=== PATIENT | female | born 1960 | race Caucasian/White ===

== ENCOUNTER → 2017-07-19 | Outpatient (CLI) | payer OTHER ==
--- NOTE | 2017-07-19 14:49 | XR ---
EXAMINATION TYPE: XR chest 2V DATE OF EXAM: 07/19/2017 COMPARISON: NONE HISTORY: Shortness of breath TECHNIQUE: Frontal and lateral views of the chest are obtained. FINDINGS: Scattered senescent parenchymal changes noted. Hyperinflation compatible with COPD. No evidence for infiltrate. No evidence for atelectasis. Heart size is stable. Mediastinal structures are stable and grossly unremarkable. No evidence for hilar prominence. Degenerative changes dorsal spine. IMPRESSION: 1. No evidence for acute pulmonary disease.
--- NOTE | 2017-07-19 14:51 | XR ---
EXAMINATION TYPE: XR forearm RT DATE OF EXAM: 07/19/2017 CLINICAL HISTORY: pain TECHNIQUE: Frontal and lateral images of the right forearm are obtained. COMPARISON: None. FINDINGS: There is no acute fracture/dislocation evident. The joint spaces appear within normal limi ts. The overlying soft tissue appears unremarkable. IMPRESSION: There is no acute fracture or dislocation. ICD 10 NO FRACTURE, INITIAL EVALUATION
--- NOTE | 2017-07-19 14:52 | XR ---
EXAMINATION TYPE: XR ribs LT DATE OF EXAM: 07/19/2017 CLINICAL HISTORY: Pain, Fall Four views of the ribs fail demonstrate evidence for displaced rib fracture or secondary sign of rib fracture. Visualized lungs are clear. No evidence for pneumothorax. IMPRESSION: No displaced rib fractures seen. ICD 10 NO FRACTURE, INITIAL EVALUATION
== END | disposition home or self-care (01) ==
LOC: RADXRMAIN 12:56
PROVIDERS: ATTEND Emergency Medicine
DX: S20.302A Unspecified superficial injuries of left front wall of thorax, initial encounter (principal); S50.11XA Contusion of right forearm, initial encounter; R07.89 Other chest pain; V89.2XXA Person injured in unspecified motor-vehicle accident, traffic, initial encounter
CPT/HCPCS: 71046

== ENCOUNTER → 2019-07-13 | Outpatient (CLI) | payer OTHER ==
[2019-07-13 09:25] LABS: Appearance,Urine Clear (Clear); Bilirubin,Urine Negative (Negative); Blood,Urine Trace (Negative); Color,Urine Light Yellow; Glucose,Urine (UA) Negative (Negative); Ketones,Urine Negative (Negative); Leukocyte Esterase,Urine Negative (Negative); Nitrite,Urine Negative (Negative); Protein,Urine Negative (Negative); RBC,Urine <1 /hpf (0-5); Specific Gravity,Urine 1.007 (1.001-1.035); Urobilinogen,Urine <2.0 mg/dL (<2.0); WBC,Urine <1 /hpf (0-5)
--- NOTE | 2019-07-13 10:17 | BD ---
EXAMINATION TYPE: Axial Bone Density DATE OF EXAM: 07/13/2019 COMPARISON: NONE CLINICAL HISTORY: N 95.1 Height: 5 FT 5 IN Weight: 164 FRAX RISK QUESTIONS: Alcohol (3 or more units per day): NO Family History (Parent hip fracture): NO Glucocorticoids (More than 3mos): NO (Ex: prednisone, prednisolone, methylprednisolone, dexamethasone, and hydrocortisone). History of Fracture in Adulthood: NO Secondary Osteoporosis: 1. Type 1 Diabetes: NO 2. Hyperthyroidism: NO 3. Menopause before 45: NO 4. Malnutrition: NO 5. Chronic liver disease: NO Rheumatoid Arthritis: NO Current Tobacco Use: NO RISK FACTORS HISTORY OF: Surgery to Spine/Hip(right/left)/Wrist (right/left): RT WRIST X 2 When: AGE 7 Family History of Osteoporosis: YES Active: YES Postmenopausal woman: AGE 54-54 Lost more than 2 inches in height since high school: YES MEDICATIONS: Additional Medications: MELOXICAM, VIT D Additional History: EXAM MEASUREMENTS: Bone mineral densitometry was performed using the [employer] System. Bone mineral density as measured about the Lumbar spine is: ----- L1-L4(G/cm2): 1.181 T Score Values are as follows: ----- L2: -0.4 ----- L3: 0.1 ----- L4: 0.1 ----- L1-L4: 0.0 BASELINE Bone mineral density about the R hip (g/cm2): 0.928 Bone mineral density about the L hip (g/cm2): 0.952 T Score values are as follows: -----R Neck: -0.8 -----L Neck: -0.6 -----R Total: -0.5 -----L Total: -0.4 BASELINE IMPRESSION: Normal (Values between +1 and -1 indicate normal bone mass). Consider repeating this study in 5 year s or sooner if there is some new clinical indication. NOTE: T-SCORE=SD OF THE YOUNG ADULT MEAN.
--- NOTE | 2019-07-16 11:36 | MM ---
Reason for exam: screening (asymptomatic). Last mammogram was performed 3 years and 7 months ago. History: Patient is postmenopausal. Physical Findings: A clinical breast exam by your physician is recommended on an annual basis and results should be correlated with mammographic findings. MG Screening Mammo w CAD Bilateral CC and MLO view(s) were taken. Prior study comparison: December 26, 2015, bilateral MG screening mammo w CAD. December 23, 2014, left breast MG work up mamm w CAD LT. The breast tissue is heterogeneously dense. This may lower the sensitivity of mammography. No suspicious abnormality. No significant changes when compared with prior studies. ASSESSMENT: Negative, BI-RAD 1 RECOMMENDATION: Routine screening mammogram of both breasts in 1 year.
== END | disposition home or self-care (01) ==
LOC: RADMAMWWP 08:06
PROVIDERS: ATTEND Obstetrics & Gynecology
DX: Z12.31 Encounter for screening mammogram for malignant neoplasm of breast (principal); N95.1 Menopausal and female climacteric states; R31.9 Hematuria, unspecified
CPT/HCPCS: 77067; 77080; 81001; 87086

== ENCOUNTER → 2024-01-04 | Outpatient (CLI) | payer OTHER ==
--- NOTE | 2024-02-18 13:07 | MR ---
EXAMINATION TYPE: MR ankle RT wo con DATE OF EXAM: 01/04/2024 COMPARISON: NONE HISTORY: 63-year-old female Chronic right ankle pain. M19.079 PRIMARY OSTEOARTHRITIS, UNSPECIFIED AN KLE TECHNIQUE: Multiplanar, multisequence images of the right ankle were obtained without IV contrast. FINDINGS: Focal severe osteoarthritic change in the navicular medial cuneiform joint with cartilage loss and fo alexandre subchondral marrow edema and cystic change. Additional osteoarthritic change with degenerative spurring along the dorsal talonavicular joint. The subtalar joint appears aligned. There may be mild early degenerative change along the posterior m argin of the posterior subtalar joint. An os trigonum is noted. At least moderate degenerative change throughout the tibiotalar joint with moderate irregular cartila ge thinning throughout and marginal spurring. However, there is more severe cartilage loss along the mid medial talar dome for an area of 1.8 cm AP and 8 mm wide. Corresponding irregularity of the subch ondral bone plate and reactive marrow edema on both sides of the joint. Small posterior tibiotalar and subtalar joint effusions communicating with the flexor hallucis longus tendon sheath. Moderate tenosynovial fluid along the posterior tibial tendon and flexor digitorum longus tendon to t he level of the knot of Wade. Medial flexor tendons are otherwise intact. Inhomogeneous signal along the posterior deltoid ligament fibers suggesting old injury. Lateral peroneal tendons appear intact. Some increased signal along the visualized PTFL fibers suggesting chronic or low-grade sprain. ATFL appears within possibly reflecting old injury but is otherwise intact. CFL is intact. The syndesmosis and anterior extensor tendons appear intact. Trace fluid within the retrocalcaneal bursa. Smooth delineation to the Achilles tendon. There is a sm all plantar heel spur at the origin of the plantar fascia is intact. Preserved fatty signal within the sinus tarsi. Tarsal tunnel is clear. IMPRESSION: 1. Overall moderate osteoarthritic change within the tibiotalar joint though with more severe cartila ge loss and reactive marrow signal change at the mid medial talar dome for an area of 18 x 8 mm. 2. Focal severe osteoarthritic change at the navicular medial cuneiform joint. 3. Mild to moderate osteoarthritic change dorsal talonavicular joint. 4. PTFL with a chronic versus low-grade sprain. Suspect old sprains of both ATFL and deltoid ligament . 5. Moderate fluid along the tendon sheaths of the medial flexor tendons may be reactive or could repr esent a nonspecific tenosynovitis.
== END | disposition home or self-care (01) ==
LOC: RADMRIMAIN 09:30
PROVIDERS: ATTEND Podiatrist Foot & Ankle Surgery
DX: M19.071 Primary osteoarthritis, right ankle and foot (principal); M24.171 Other articular cartilage disorders, right ankle

== ENCOUNTER 2024-04-06 09:45 | Day surgery (SDC) | payer OTHER ==
[~2024-04-06 09:45] MED LIST: HYDROmorphone 0.5 MG/0.5 ML SYRINGE IVP PRN; LIDOCAINE 1% (10MG/ML) FOR IV START INTRADERMA PRN; MIDAZOLAM 2 MG/2 ML VIAL IV PRN; fentaNYL (PF) 50 MCG/ML 2 ML AMP IVP PRN
[2024-04-06] MEDS: IV FLUID CONTINUATION 1,000 ML IV ONE (09:58)
[2024-04-06] MEDS: DEXAMETHASONE SOD PHOSPHATE 4 MG/ML 1 ML VIAL IV ONE (10:17)
[2024-04-06] MEDS: ONDANSETRON 4 MG/2 ML VIAL IVP ONE (10:17)
[2024-04-06] MEDS: LACTATED RINGERS 1,000 ML IV SCH (10:17)
[2024-04-06] MEDS ORDERED: LIDOCAINE 1% INJ 10MG/ML (20 ML MDV) ONE (11:31)
[2024-04-06] MEDS ORDERED: MIDAZOLAM 2 MG/2 ML VIAL ONE (11:31)
[2024-04-06] MEDS ORDERED: fentaNYL (PF) 50 MCG/ML 2 ML AMP ONE (11:31)
[2024-04-06] MEDS ORDERED: PROPOFOL 10 MG/ML 20 ML VIAL IV ONE (11:31)
[2024-04-06] MEDS: LIDOCAINE 1% INJ 10MG/ML (20 ML MDV) SQ ONE ×2 (11:51→12:33)
[2024-04-06] MEDS: BUPIVACAINE (PF) 0.5% 30 ML VIAL SQ ONE (12:33)
[2024-04-06 12:47] VITALS: TEMP 97.6
--- NOTE | 2024-04-06 12:58 | P.OP ---
Date of Procedure: 04/06/24 Preoperative Diagnosis: Right ankle arthritis Tibial exostosis right ankle Postoperative Diagnosis: Right ankle arthritis Tibial exostosis right ankle Procedure(s) Performed: Extensive arthroscopic debridement right ankle Tibial exostectomy right ankle Talar exostectomy right ankle Implants: None Anesthesia: PRATIK DEAN Surgeon: Joi Coronado Estimated Blood Loss (ml): 3 Pathology: other (Soft tissue and bone sent to pathology) Condition: stable Disposition: PACU Indications for Procedure: This is a 63-year-old female presenting for surgical intervention of her right ankle. Patient has had chronic ankle arthritis for quite some time and has been treated conservatively she is officially failed all conservative treatment options. Patient has had injections as well as bracing. The patient has chosen surgical correction of the deformity. Preoperative H&P and lab studies were reviewed and no apparent contraindications to proposed surgery were noted. Informed consent was obtained x-rays and MRI confirmed the diagnosis. Patient's questions were answered to the level of their satisfaction no guarantees were given or implied Description of Procedure: Under mild sedation the patient was brought into the operating room and placed on the operating table in the supine position. Followed following general anesthesia the right leg was scrubbed prepped and draped in the usual aseptic manner. A timeout was performed and the leg was exsanguinated to allow for hemostasis. It was elevated to 60 degrees and the tourniquet was inflated to 300 mmHg. The leg was lowered to the table. At that time the bed was elevated and the feet were dropped in order to Distention of the ankle joint. A small percutaneous incision was made on the medial ankle joint after the joint was insufflated with 20 cc of lidocaine. This was then deepened with a hemostat with care to retract all vital neurovascular structures. Hemostat entered the joint smoothly and we noticed fluid that was appropriate location. Scope was placed in the ankle joint. Severe destructive changes appreciated to the ankle joint. There is very extensive synovitis. Photographs were taken. Next a an incision was made on the lateral aspect of the joint and the 4 oh shaver was placed into the joint. Once in the joint and some of the synovitis was cleaned up were able to better visualize the joint. Severe cartilage destruction is appreciated to the anterior distal tibia as well as dorsal talus. Photographs are taken of this due to the extensive destruction. Complete subchondral bone had been removed and it was down to what appears to be cancellous bone. Extensive debridement of the synovitis was appreciated. Large spur was noted and unable to be resected through the scope. At that time it was decided to convert this to an open p rocedure. The medial incision was then lengthened with a sterile 15 blade and deepened with a hemostat. Care was taken to avoid all neurovascular structures. Once down to the joint the distal tibial articulation with the talus was easily noted. A very large spur was appreciated. An osteotome was used to resect the spur off of the talus as well as the distal tibia. Once both spurs were resect ed a power rasp was used to smooth both sides. Good range of motion of the joint was appreciated with no grinding of the tibia within the talus. The site was flushed with copious amounts of saline. Next deep closure was performed with 3-0 Vicryl subcutaneous closure with 4-0 Vicryl and skin closure with 3-0 Prolene. A postoperative block consisting of 10 cc 1% lidocaine plain and 10 cc of half percent Marcaine plain were injected regionally around the ankle joint. The site was dressed with Betadine soaked Adaptic, 4 x 4, ABD, Dudley and an Garth bandage. Patient was paced in a surgical shoe. She is to remain nonweightbearing. Patient tolerated the procedure and anesthesia well without complications. Tourniquet was deflated and hyperemic response was noted to all digits. Patient will be discharged home per anesthesia. Patient struck to to ice and elevate the right foot while at rest. She is instructed to do knee flexion extension exercises. She is able to start her Eliquis tomorrow. Prescription for tramadol was sent to the pharmacy today. Joi Coronado D.P.M., AACFAS
--- NOTE | 2024-04-06 13:35 | XR ---
EXAMINATION TYPE: XR ankle complete RT DATE OF EXAM: 04/06/2024 COMPARISON: MR right ankle 01/04/2024 HISTORY: Postop debridement TECHNIQUE: Frontal, lateral and oblique images of the right ankle are obtained. FINDINGS: There is no acute fracture/dislocation evident. Osteoarthritic changes of the talotibial j oint with joint space narrowing and osteophyte formation. Osteoarthritic change identified within the navicular medial cuneiform joint. Additional osteoarthritic change at the dorsal talonavicular joint . Mild anterior ankle soft tissue edema with trace foci of soft tissue gas related to postsurgical de bridement. No osseous erosion is identified. Mild atherosclerosis. Small plantar calcaneal enthesophy te. IMPRESSION: 1. No acute fracture or dislocation. 2. Postsurgical changes from debridement. 3. Moderate osteoarthritic changes of the ankle. [facility], , 04/06/2024 1:32 PM
[2024-04-06] MEDS: traMADol 50 MG TAB PO STA (14:24)
[2024-04-06 14:29] VITALS: RESP 16
[2024-04-06 14:39] VITALS: BP 105/69; PULSE 68
== END 2024-04-06 15:18 | disposition home or self-care (01) ==
LOC: OR 09:45
PROVIDERS: ATTEND Podiatrist Foot & Ankle Surgery
DX: M13.871 Other specified arthritis, right ankle and foot (principal); I25.10 Atherosclerotic heart disease of native coronary artery without angina pectoris; M89.9 Disorder of bone, unspecified; M65.90 Unspecified synovitis and tenosynovitis, unspecified site
CPT/HCPCS: 29898; 88305; 88307; 88311; 73610; J2250; J1100; J0690; J2405; J2003; J3010; J2704; J0665